=== PATIENT | female | born 1965 | race Caucasian/White ===

== ENCOUNTER 2023-12-01 18:36 | Emergency (ER) | payer OTHER ==
[~2023-12-01] VITALS: Ht 162.6 cm; Wt 72.6 kg
[2023-12-01 18:54] VITALS: O2SAT 100
[2023-12-01 19:39] VITALS: O2SAT 100
== END 2023-12-01 19:39 | disposition home or self-care (01) ==
LOC: SED 18:36 → EDBD 18:36 → SED 19:39
DX: Z00.00 Encounter for general adult medical examination without abnormal findings (principal); Z79.899 Other long term (current) drug therapy
CPT/HCPCS: 99283